=== PATIENT | male | born 1990 | race Caucasian/White ===

== ENCOUNTER 2016-03-01 18:52 | Emergency (ER) | payer OTHER ==
[~2016-03-01] VITALS: Ht 190.5 cm; Wt 68.0 kg
[2016-03-01 18:53] VITALS: BP 149/71; PULSE 84; RESP 16; TEMP 97.7; O2SAT 96
[2016-03-01 19:21] VITALS: RESP 18
[2016-03-01] MEDS ORDERED: LAMI200T PO (19:22)
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
[2016-03-01] MEDS ORDERED: SODIUM CHLOR 0.9% 1000 ML INJ 1,000 ML IV ONE (19:45)
[2016-03-01] MEDS ORDERED: PROPOFOL 200 MG/20 ML AMP IV ONE (19:45)
[2016-03-01] MEDS ORDERED: ONDANSETRON HCL 4 MG/2 ML VIAL IV PUSH ONE (19:45)
[2016-03-01] MEDS ORDERED: MORPHINE SULFATE 4 MG/ML INJ IV PUSH ONE (19:45)
[2016-03-01 19:47] LABS: BICARBONATE 22.5 MEQ/L (21.0-32.0); POTASSIUM 4.1 MEQ/L (3.5-5.1)
[2016-03-01 19:51] LABS: BASOPHIL # 0.1 TH/MM3 (0-0.2); BASOPHIL % 0.7 % (0.0-2.0); EOSINOPHIL # 0.5 TH/MM3 (0-0.4); EOSINOPHIL % 4.9 % (0.0-4.0); HEMATOCRIT 41.5 % (39.0-51.0); HEMO FLAGS DIFF FINAL; LYMPH % 20.6 % (9.0-44.0); LYMPHOCYTE # 2.2 TH/MM3 (1.0-4.8); MEAN CELL VOLUME 89.8 FL (80.0-100.0); MEAN CORPUSCULAR HGB CONC 34.5 % (32.0-36.0); MONO % 7.5 % (0.0-8.0); NEUT % 66.3 % (16.0-70.0); PLATELET COUNT 267 TH/MM3 (150-450); RED BLOOD COUNT 4.63 MIL/MM3 (4.50-5.90); RED CELL DISTRIBUTION WIDTH 12.6 % (11.6-17.2); WHITE BLOOD COUNT 10.5 TH/MM3 (4.0-11.0)
--- NOTE | 2016-03-01 20:24 | RADRPT ---
EXAM DATE/TIME: 03/01/2016 20:11 [facility] COMPARISON: No previous studies available for comparison. INDICATIONS : Pain from trampoline fall. MEDICAL HISTORY : Prior shoulder dislocation. Prior humeral fracture. SURGICAL HISTORY : Prior surgical repair, humerus. ENCOUNTER: Initial ACUITY: 1 day PAIN SCORE: 10/10 LOCATION: Right shoulder. FINDINGS: There is evidence of an acute anterior dislocation of the right shoulder. No definite fracture is matthew ntified. CONCLUSION: Acute anterior dislocation of the right shoulder without definite fracture. Harry Blanchard MD on March 01, 2016 at 20:22 Board Certified Radiologist. This report was verified electronically.
[2016-03-01 20:33] VITALS: O2SAT 100
[2016-03-01] MEDS ORDERED: NAPR1TAB34 PO (20:48)
--- NOTE | 2016-03-01 21:19 | RADRPT ---
EXAM DATE/TIME: 03/01/2016 21:10 [facility] COMPARISON: SHOULDER RIGHT LTD (2VWS), March 01, 2016, 20:11. INDICATIONS : Post reduction. MEDICAL HISTORY : Prior shoulder dislocation. Prior humeral fracture. SURGICAL HISTORY : Prior surgical repair, humerus. ENCOUNTER: Subsequent ACUITY: 1 day PAIN SCORE: 2/10 LOCATION: Right shoulder. FINDINGS: The patient is status post closed reduction of right shoulder anterior dislocation. The humeral head appears to be anatomic in position in relation to the glenoid status post reduction. No fracture is n oted. CONCLUSION: Status post successful closed reduction of right shoulder anterior dislocation. Harry Blanchard MD on March 01, 2016 at 21:16 Board Certified Radiologist. This report was verified electronically.
== END 2016-03-01 21:58 | disposition home or self-care (01) ==
LOC: NEPE 18:52
DX: S43.084A Other dislocation of right shoulder joint, initial encounter (principal); W17.89XA Other fall from one level to another, initial encounter; Y93.44 Activity, trampolining; Y92.39 Other specified sports and athletic area as the place of occurrence of the external cause; Z72.0 Tobacco use
CPT/HCPCS: 23650; 73030; 80048; 85025; 96361; 96374; 96375; 99152; 99283; J2270; J2405; J7030; 94770